=== PATIENT | male | born 1950 ===

== ENCOUNTER 2021-05-23 13:52 | Outpatient (CLI) | payer OTHER | END 2021-05-23 14:02 | disposition home or self-care (01) | LOC: RAD 13:52 | PROVIDERS: ATTEND Urology | DX: I10 Essential (primary) hypertension (principal) ==

== ENCOUNTER 2021-05-30 12:46 | Outpatient (CLI) | payer OTHER | END 2021-05-30 12:48 | disposition home or self-care (01) | LOC: LAB 12:46 | PROVIDERS: ATTEND Urology | DX: C67.5 Malignant neoplasm of bladder neck (principal) ==

== ENCOUNTER 2021-06-14 09:32 | Day surgery (SDC) | payer OTHER ==
[~2021-06-14 09:32] MED LIST: ALDACTONE25 MG PO; ATENOLOL50 MG PO; HORIZANT300 MG PO; LIPIT PO; ZESTRIL40 M1 PO
== END 2021-06-14 20:10 | disposition home or self-care (01) ==
LOC: CIR.AMB 09:32
PROVIDERS: ATTEND Urology
DX: C67.8 Malignant neoplasm of overlapping sites of bladder (principal)